=== PATIENT | female | born 2000 | race Caucasian/White ===

== ENCOUNTER → 2023-12-29 07:52 | Outpatient (REF) | payer BC, SELFPAY | LOC: RAD 07:52 | PROVIDERS: ATTENDING PHYSICIAN Internal Medicine Gastroenterology; FAMILY PHYSICIAN Internal Medicine | DX: R12 Heartburn (principal); R11.2 Nausea with vomiting, unspecified; R10.13 Epigastric pain; R19.8 Other specified symptoms and signs involving the digestive system and abdomen | CPT/HCPCS: 78264; A9541 ==